=== PATIENT | male | born 1955 | race Caucasian/White ===

== ENCOUNTER 2018-02-05 16:11 | Emergency (ER) | payer OTHER ==
[~2018-02-05] VITALS: Ht 172.7 cm; Wt 83.9 kg
[~2018-02-05 16:11] MED LIST: AMIODARONE HCL200 MG NGT; LOTREL 10-20 MG1 CAP PO; TOPROL XL50 MG PO
[2018-02-05] MEDS ORDERED: CLONAZEPAM1 MG PO (16:25)
[2018-02-05] MEDS ORDERED: COUMADIN1 MG PO (16:25)
== END 2018-02-05 21:27 | disposition home or self-care (01) ==
LOC: ER 16:11
DX: R19.09 Other intra-abdominal and pelvic swelling, mass and lump (principal); M79.81 Nontraumatic hematoma of soft tissue

== ENCOUNTER 2019-08-11 16:03 | Emergency (ER) | payer OTHER ==
[~2019-08-11] VITALS: Ht 175.3 cm; Wt 82.6 kg
[~2019-08-11 16:03] MED LIST changes: +CLONAZEPAM1 MG PO; +COUMADIN1 MG PO
== END 2019-08-11 20:43 | disposition home or self-care (01) ==
LOC: ER 16:03
DX: J06.9 Acute upper respiratory infection, unspecified (principal); J32.8 Other chronic sinusitis; J34.0 Abscess, furuncle and carbuncle of nose

== ENCOUNTER 2020-10-16 12:45 | Emergency (ER) | payer OTHER ==
[~2020-10-16] VITALS: Ht 172.7 cm; Wt 90.7 kg
[2020-10-16] MEDS ORDERED: SYNTHROID100 MCG (13:17)
[2020-10-16] MEDS ORDERED: TOPROL XL100 M1 (13:17)
[2020-10-16] MEDS ORDERED: LOTREL 10-20 M1 EACH (13:17)
== END 2020-10-16 17:52 | disposition home or self-care (01) ==
LOC: ER 12:45 → CPU-OBS 13:37 → ER 13:37
DX: I48.91 Unspecified atrial fibrillation (principal)

== ENCOUNTER → 2024-07-24 | Outpatient (CLI) | payer OTHER ==
[~2024-07-24] MED LIST changes: +LOTREL 10-20 M1 EACH; +SYNTHROID100 MCG; +TOPROL XL100 M1
== END | disposition home or self-care (01) ==
LOC: RAD 11:00
PROVIDERS: ATTEND Specialist
DX: J45.998 Other asthma (principal); J90 Pleural effusion, not elsewhere classified

== ENCOUNTER → 2025-02-07 | Outpatient (CLI) | payer OTHER | END | disposition home or self-care (01) | LOC: MRI 07:36 | PROVIDERS: ATTEND Specialist | DX: D17.1 Benign lipomatous neoplasm of skin and subcutaneous tissue of trunk (principal) | CPT/HCPCS: 71552; Q9965; 72157 ==

== ENCOUNTER 2025-03-20 12:11 | Outpatient (CLI) | payer OTHER | END 2025-03-20 12:15 | disposition home or self-care (01) | LOC: RAD 12:11 | PROVIDERS: ATTEND Specialist | DX: J45.998 Other asthma (principal) ==

== ENCOUNTER → 2025-03-20 | Outpatient (CLI) | payer OTHER | END | disposition home or self-care (01) | LOC: EKG 13:13 | PROVIDERS: ATTEND Specialist | DX: Z01.810 Encounter for preprocedural cardiovascular examination (principal) ==

== ENCOUNTER 2025-06-14 07:00 | Day surgery (SDC) | payer OTHER ==
[2025-06-06 12:17] LABS: URINE APPEARANCE Clear; URINE BILIRRUBIN Negative (NEGATIVE); URINE BLOOD Negative; URINE COLOR Dark Yellow; URINE GLUCOSE Negative (NEGATIVE); URINE KETONE Trace (NEGATIVE); URINE LEUKOCYTE Negative; URINE NITRATE Negative; URINE PROTEIN Trace (NEGATIVE); URINE UROBILINOGEN 1.0 E.U./dl
[2025-06-06 12:21] LABS: URINE BACTERIA 22.7 uL (0.0-1933); URINE CAST 7.03 uL (0.0-1.40); URINE EPITHELIAL CELLS 14.1 uL (0.0-38.8); URINE RBC 2.7 uL (0.0-20.8); URINE WBC 4.9 uL (0.0-23.2)
[2025-06-06 12:22] LABS: BASO % 1.0 % (0.1-1.2); EOS # 0.20 (0.04-0.54); EOS % 2.1 % (0.7-7.0); LYMPH # 1.98 (1.18-3.74); LYMPH % 21.2 % (19.3-53.1); MEAN PLATELET VOLUME 10.20 fl (9.4-12.4); MONO # 1.18 (0.24-0.82); NEUT # 5.81 (1.56-6.13); NEUT % 62.4 % (34.0-71.1); RED CELL DISTRIBUTION WIDTH 13.6 % (11.6-14.4)
[2025-06-06 12:59] LABS: ALT/SGPT 22.0 U/L (12-78); AST/SGOT 16.0 U/L (15-37); BILIRUBIN TOTAL 0.73 mg/dL (0.3-1.2); BUN CREA RATIO 13.0 (7.0-25.0); CREATININE SERUM 1.4 mg/dL (0.70-1.30); GFR 50.4; GLOBULINA 4.2 G/DL (2.4-3.5); GLUCOSE FASTING 95.0 mg/dL (65-100); OSMOLALITY SERUM 283.0 MOSM/KG (275-295); TSH 1.8 uIU/mL (0.358-3.74)
[2025-06-06 13:13] LABS: MONO % 12.7 % (4.7-12.5)
[2025-06-06 13:38] VITALS: BP 110/65
[2025-06-06 14:03] LABS: INR 1.26
[~2025-06-14] VITALS: Ht 172.7 cm; Wt 90.7 kg
[~2025-06-14 07:00] MED LIST changes: +LOTREL 5-10 MG1 CAP PO; +MULTAQ400 MG PO; +NEURONTIN300 MG; +XARELTO20 MG
[2025-06-14] MEDS ORDERED: CIPROFLOXACIN IN 5 % DEXTROSE 400 MG/200 ML PIGGYBAG IV ONE (07:44)
[2025-06-14] MEDS ORDERED: FAMOTIDINE/PF 20 MG/10 ML SYRINGE IV SCH (11:00)
[2025-06-14] MEDS ORDERED: CEFAZOLIN SODIUM 1,000 MG VIAL IV SCH (11:00)
[2025-06-14] MEDS ORDERED: FAMOTIDINE/PF 20 MG/2 ML VIAL ONE (11:28)
[2025-06-14] MEDS ORDERED: CEFAZOLIN SODIUM 1,000 MG VIAL ONE (11:28)
== END 2025-06-14 13:40 | disposition home or self-care (01) ==
LOC: CIR.AMB 07:00
PROVIDERS: ATTEND Specialist
DX: D17.1 Benign lipomatous neoplasm of skin and subcutaneous tissue of trunk (principal)